=== PATIENT | female | born 1995 | race American Indian/Alaskan Native ===

== ENCOUNTER 2016-07-24 08:26 | Inpatient (IN) | payer MEDICAID ==
[2016-07-24] MEDS ORDERED: SUBLIMAZE IV PRN (09:02)
[2016-07-24] MEDS ORDERED: ePHEDrine SULFATE IV PRN (09:02)
[2016-07-24] MEDS ORDERED: XYLOCAINE 2% INFILTRATI ONE (09:02)
[2016-07-24] MEDS ORDERED: MINERAL OIL PO PRN (09:02)
[2016-07-24] MEDS ORDERED: BRETHINE SUB-Q PRN (09:02)
[2016-07-24 09:48] LABS: Hematocrit 34.8 % (30.3-42.9); Hemoglobin 11.2 gm/dl (10.1-14.3); Mean Corpuscular HGB Conc 32 % (30-34); Mean Corpuscular Volume 78 fl (79-97); Platelet Count 306 K/mm3 (140-440); Red Blood Count 4.47 M/mm3 (3.65-5.03); Red Cell Distribution Width 18.3 % (13.2-15.2); White Blood Count 14.1 K/mm3 (4.5-11.0)
[2016-07-24 09:52] LABS: Mean Corpuscular Hemoglobin 25 pg (28-32)
[2016-07-24] MEDS ORDERED: PITOCin/NS 20 UNIT/1000ML DRIP 1,000 ML IV SCH (10:00)
[2016-07-24] MEDS ORDERED: LACTATED RINGERS 1,000 ML IV SCH (10:00)
[2016-07-24] MEDS ORDERED: PITOCin/NS 30 UNIT/500ML 500 ML IV SCH (10:00)
[2016-07-24] MEDS ORDERED: NORCO 5/325 PO PRN (11:52)
[2016-07-24] MEDS ORDERED: LANSINOH TP PRN ×2 (11:52→12:54)
[2016-07-24] MEDS ORDERED: DULCOLAX PR PRN ×2 (11:52→12:54)
[2016-07-24] MEDS ORDERED: TYLENOL PO PRN ×2 (11:52→12:54)
[2016-07-24] MEDS ORDERED: DERMOPLAST TP PRN ×2 (11:52→12:54)
[2016-07-24] MEDS ORDERED: PHENERGAN PO PRN ×2 (11:52→12:54)
[2016-07-24] MEDS ORDERED: TUCKS PAD TP PRN ×2 (11:52→12:54)
[2016-07-24] MEDS ORDERED: ZOFRAN IV PRN ×2 (11:52→12:54)
[2016-07-24] MEDS ORDERED: BENADRYL PO PRN ×2 (11:52→12:54)
[2016-07-24] MEDS ORDERED: SODIUM CHLORIDE FLUSH SYRINGE 10 ML IV NR ×2 (12:00→12:54)
--- NOTE | 2016-07-24 12:02 | History and Physical Report ---
History of Present Illness Date of examination: 07/24/16 (pt arrived by EMS in active labor; due to deliver @ [facility]) Date of admission: 07/24/16 08:57 History of present illness: Medical HX - denies any concerns Surgical HX - denies any surgeries Family HX negative No STDs NO ETOH,smoking, drug use Pt has her PNR with her GBS Negative @ 39 weeks EDC 07-27-16 Past History - Obstetrical History Expected Date of Delivery: 07/27/16 Actual Gestation: 39 Week(s) 4 Day(s) : 1 Para: 0 Number of Living Children: 0 Medications and Allergies Allergies Allergy/AdvReac Type Severity Reaction Status Date / Time shellfish derived Allergy Angioedema Verified 07/24/16 09:43 Active Meds: Active Medications Acetaminophen (Tylenol) 650 mg PO Q4H PRN PRN Reason: Pain MILD(1-3)/Fever >100.5/BROWER Acetaminophen/Hydrocodone Bitart (Nelson 5/325) 2 each PO Q6H PRN PRN Reason: Pain, Moderate (4-6) Benzocaine/Menthol (Dermoplast) 1 spray TP PRN PRN PRN Reason: Episiotomy Pain Bisacodyl (Dulcolax) 10 mg ME BID PRN PRN Reason: Constipation Diphenhydramine HCl (Benadryl) 25 mg PO Q6H PRN PRN Reason: Itching Diphtheria/Tetanus/Acell Pertussis (Boostrix) 0.5 ml IM .ONCE ONE Stop: 07/25/16 11:53 Fentanyl (Sublimaze) 100 mcg IV Q2H PRN PRN Reason: Labor Pain Lactated Ringer's (Lactated Ringers) 1,000 mls @ 125 mls/hr IV DIRECT KAYLIN Last Admin: 07/24/16 09:30 Dose: 125 mls/hr Oxytocin/Sodium Chloride (Pitocin/Ns 20 Unit/1000ml Drip) 1,000 mls @ 125 mls/ hr IV DIRECT KAYLIN Last Admin: 07/24/16 10:09 Dose: 125 mls/hr Oxytocin/Sodium Chloride (Pitocin/Ns 30 Unit/500ml) 500 mls @ 4 mls/hr IV TITR KAYLIN PRN Reason: Protocol Ibuprofen (Motrin) 600 mg PO Q6H KAYLIN Magnesium Hydroxide (Milk Of Magnesia) 30 ml PO HS PRN PRN Reason: Constipation Measles/Mumps/Rubella Vaccine Live (M-M-R Ii Vaccine) 0.5 ml SUB-Q .ONCE ONE Stop: 07/25/16 11:53 Mineral Oil (Mineral Oil) 30 ml PO QHS PRN PRN Reason: Constipation Multi-Ingredient Ointment (Lansinoh) 1 applic TP PRN PRN PRN Reason: Sore Nipples Ondansetron HCl (Zofran) 4 mg IV Q8H PRN PRN Reason: Nausea And Vomiting Promethazine HCl (Phenergan) 25 mg PO Q6H PRN PRN Reason: Nausea And Vomiting Sodium Chloride (Sodium Chloride Flush Syringe 10 Ml) 10 ml IV PRN NR Witch Jenny/Glycerin (Tucks Pad) 1 each TP PRN PRN PRN Reason: Hemorrhoid/cleansing/soothing - Vital Signs Vital signs: Vital Signs Pulse BP 88 131/85 07/24/16 08:41 07/24/16 08:41 Temp Pulse Resp BP Pulse Ox 97.6 F 88 18 152/81 07/24/16 09:30 07/24/16 11:50 07/24/16 09:30 07/24/16 11:50 - Physical Exam Breasts: Positive: deferred Cardiovascular: Regular rate, Normal S1, Normal S2 Lungs: Positive: Normal air movement Abdomen: Positive: normal appearance, soft, normal bowel sounds. Negative: distention, tenderness Genitourinary (Female): Positive: normal external genitalia Vulva: both: normal Vagina: Positive: normal moisture. Negative: discharge Cervix: Negative: lesion, discharge Uterus: Positive: normal size, normal contour Adnexa: both: normal Anus/Rectum: Positive: normal perianal skin, heme negative. Negative: rectal mass, hemorrhoids Extremities: Deep Tendon Reflex Grade: Normal +2 - Obstetrical FHR: category 1 Uterine Contraction Monitor Mode: External Cervical Dilatation: 6 (BBOW) Cervical Effacement Percentage: 100 station: +1 Uterine Contraction Pattern: Regular Uterine Contraction Intensity: Moderate Results Result Diagrams: 07/24/16 09:39 Abnormal lab results 07/24/16 Range/Units 09:39 WBC 14.1 H (4.5-11.0) K/mm3 MCV 78 L (79-97) fl MCH 25 L (28-32) pg RDW 18.3 H (13.2-15.2) % All other labs normal. Assessment and Plan 20yo @ 39.4 weeks in active labor Pt has had complete OB care with @ [facility] She states she was kaylin for IOL there but they did not have a bed. Orders in EMR GBS negative by record. Anticipate delivery
--- NOTE | 2016-07-24 12:08 | Procedure Note ---
OB Delivery Note - Delivery Date of Delivery: 07/24/16 (called by RN for imminent delivery) Financial Services Counselor: MICHELLE ZUÑIGA Estimated blood loss: 300cc - Vaginal Delivery presentation: vertex Delivery position: OA Intrapartum events: none Delivery induction: none Delivery monitor: external FHT, external uterine Route of delivery: Delivery placenta: spontaneous Delivery cord: 3 umbilical vessels Episiotomy: none Delivery laceration: none Anesthesia: none Delivery comments: live born female over intact perineum OA. Placed on mom's abdomen skin to skin Cord blood obt Placenta and membrane del complete and intact, 3 vessel cord. Pit IVFs. 8/9, EBL 300, Wgt 6-1 Mom and baby remain LDR stable. aware of admission and delivery - A at 1 minute: 8 at 5 minutes: 9 Gender: Female (wgt 6-1)
[2016-07-24] MEDS ORDERED: MILK OF MAGNESIA PO PRN ×2 (12:30→12:54)
[2016-07-24] MEDS ORDERED: MOTRIN PO SCH (12:54)
[2016-07-24] MEDS ORDERED: PHENERGAN PR PRN (12:54)
[2016-07-24] MEDS ORDERED: PERCOCET 5/325 PO PRN (12:54)
[2016-07-24] MEDS ORDERED: TORADOL IV PRN (12:54)
[2016-07-24] MEDS ORDERED: BOOSTRIX IM ONE (12:54)
[2016-07-24 14:38] LABS: Urine Drugs of Abuse Note Disclamer
[2016-07-24 14:52] LABS: Basophils % (Auto) 0.3 % (0.0-1.8); Hematocrit 35.3 % (30.3-42.9); Hemoglobin 11.2 gm/dl (10.1-14.3); Mean Corpuscular HGB Conc 32 % (30-34); Mean Corpuscular Volume 79 fl (79-97); Platelet Count 306 K/mm3 (140-440); Red Blood Count 4.48 M/mm3 (3.65-5.03); Red Cell Distribution Width 18.5 % (13.2-15.2); White Blood Count 16.1 K/mm3 (4.5-11.0)
[2016-07-24 14:55] LABS: Bilirubin,Urine NEG (Negative); Blood,Urine LG (Negative); Ketones,Urine 20 mg/dL (Negative); Leukocyte Esterase,Urine TR (Negative); Mucus,Urine FEW /HPF; Nitrite,Urine NEG (Negative); Urobilinogen,Urine < 2.0 mg/dL (<2.0)
[2016-07-24 14:57] LABS: Mean Corpuscular Hemoglobin 25 pg (28-32)
[2016-07-24 15:05] LABS: Alanine Aminotransferase 11 units/L (7-56); Lactate Dehydrogenase 305 units/L (91-180)
[2016-07-24 15:07] LABS: Uric Acid 5.6 mg/dL (3.5-7.6)
[2016-07-24 15:07] LABS: RBC,Urine > 132.0 /HPF (0.0-6.0)
--- NOTE | 2016-07-24 16:46 | Event Note ---
Date: 07/24/16 (called from RN on m/b BP 142/90) [facility] labs drawn Results in EMR LDH elevated Liver enzymes wnl Instructed to take and document BPs at least q2hr until dx is made.
[2016-07-24] MEDS: MOTRIN PO SCH ×2 (18:21→23:35)
[2016-07-25 03:19] LABS: Hemoglobin 10.4 gm/dl (10.1-14.3)
[2016-07-25 03:32] LABS: Hematocrit 32.6 % (30.3-42.9)
[2016-07-25] MEDS: MOTRIN PO SCH ×3 (05:46→18:30)
--- NOTE | 2016-07-25 08:25 | Progress Note ---
Assessment and Plan Patient w/o complaints, reports baby is in nursery for jaundice. Lochia scant, VSSAF, no s/s pre-e, labs NL. H&H 10.4/32.6. Plan for d/c home tomorrow d/t needing additional monitoring. - Patient Problems (1) Spontaneous vaginal delivery Current Visit: Yes Status: Acute Subjective - Subjective Date of service: 07/25/16 Principal diagnosis: day #1 s/p Patient reports: appetite normal, voiding normally, pain well controlled, ambulating normally, no dizzy ambulation, no nauseated : bottle feeding (in nursery for [place]) Objective - Vital Signs Latest vital signs: Vital Signs Temp Pulse Pulse Pulse Resp BP BP 07/25/16 00:10 98.1 F 82 20 134/72 07/24/16 20:00 98.4 F 88 20 127/74 07/24/16 18:10 120/77 07/24/16 15:50 98.8 F 102 H 20 123/89 07/24/16 12:40 97.6 F 86 16 142/91 07/24/16 12:04 102 H 147/80 07/24/16 12:00 97.1 F L 16 07/24/16 11:50 88 152/81 07/24/16 11:35 48 L 133/68 07/24/16 11:19 88 138/87 07/24/16 10:15 97.6 F 18 07/24/16 09:30 97.6 F 18 07/24/16 08:41 88 131/85 Intake and Output 07/24/16 07/25/16 07/25/16 22:59 06:59 14:59 Intake Total 240 240 Output Total 500 Balance -260 240 Intake: Oral 240 240 Output: Urine 500 Void 500 Other: Total, Intake Amount 240 240 Total, Output Amount 500 # Voids Void 1 - Exam Breasts: Present: normal Cardiovascular: Present: Regular rate Lungs: Present: Clear to auscultation, Normal air movement Abdomen: Present: normal appearance, soft, normal bowel sounds Vulva: both: normal Uterus: Present: normal, firm, fundal height at umbilicus Extremities: Present: normal Deep Tendon Reflex Grade: Normal +2 - Labs Labs: Abnormal lab results 07/24/16 07/24/16 07/24/16 Range/Units 09:39 13:29 14:00 WBC 14.1 H 16.1 H (4.5-11.0) K/mm3 MCV 78 L (79-97) fl MCH 25 L 25 L (28-32) pg RDW 18.3 H 18.5 H (13.2-15.2) % Lymph % (Auto) 6.1 L (13.4-35.0) % Lymph # 1.0 L (1.2-5.4) K/mm3 Dade # 1.0 H (0.0-0.8) K/mm3 Seg Neutrophils % 87.2 H (40.0-70.0) % Seg Neutrophils # 14.1 H (1.8-7.7) K/mm3 Creatinine (0.7-1.2) mg/dL Lactate Dehydrogenase (91-180) units/L Urine WBC (Auto) 10.0 H (0.0-6.0) /HPF 07/24/16 07/24/16 Range/Units 14:00 14:00 WBC (4.5-11.0) K/mm3 MCV (79-97) fl MCH (28-32) pg RDW (13.2-15.2) % Lymph % (Auto) (13.4-35.0) % Lymph # (1.2-5.4) K/mm3 Dade # (0.0-0.8) K/mm3 Seg Neutrophils % (40.0-70.0) % Seg Neutrophils # (1.8-7.7) K/mm3 Creatinine 0.4 L (0.7-1.2) mg/dL Lactate Dehydrogenase 305 H (91-180) units/L Urine WBC (Auto) (0.0-6.0) /HPF
--- NOTE | 2016-07-25 08:29 | Discharge Summary ---
Providers - Providers Date of Admission: 07/24/16 08:57 Date of discharge: 07/26/16 Attending physician: VALENTÍN ERWIN 07/24/16 12:54 Consult to [employer] [CONS] Routine Reason For Exam: assistance with , SNS Primary care physician: VALENTÍN ERWIN Hospitalization Reason for admission: active labor Delivery: Episiotomy: none Laceration: none Other procedures: none complications: none Discharge diagnosis: IUP at term delivered [place] baby: female Hospital course: uncomplicated vaginal delivery Condition at discharge: Good Disposition: DISCHARGED TO HOME OR SELFCARE - Discharge Diagnoses (1) Spontaneous vaginal delivery Status: Acute Plan - Provider Discharge Summary Activity: routine, no sex for 6 weeks, no heavy lifting 4 weeks, no strenuous exercise Diet: routine Instructions: routine Additional instructions: [] Smoking cessation referral if applicable(refer to patient education folder for contact #) [] Refer to [facility] Booklet Call your doctor immediately for: * Fever > 100.5 * Heavy vaginal bleeding ( >1 pad per hour) * Severe persistent headache * Shortness of breath * Reddened, hot, painful area to leg or breast * Drainage or odor from incision. * Keep incision clean and dry at all times and follow doctor's instructions regarding bathing/showering - Follow up plan Follow up: VALENTÍN ERWIN MD [Primary Care Provider] - 08/25/16 (Congratulations! Please call [phone] to schedule your visit in 4 weeks with our office, or you can follow up with your own provider for care. Call for any questions or concerns. )
[2016-07-25] MEDS ORDERED: BOOSTRIX IM ONE (11:52)
[2016-07-25] MEDS ORDERED: M-M-R II VACCINE SUB-Q ONE (11:52)
[2016-07-25] MEDS ORDERED: FLUARIX QUAD 2016-2017(36 MOS+) IM ONE (12:00)
[2016-07-26] MEDS: MOTRIN PO SCH ×2 (00:23→06:23)
[2016-07-26 15:19] VITALS: BP 144/88
== END 2016-07-26 14:00 | disposition home or self-care (01) | DRG 775 ==
LOC: TRG 08:26 → LD 08:57 → OB 12:42
PROVIDERS: ADMIT Obstetrics & Gynecology; ATTEND Obstetrics & Gynecology
PROC: 10E0XZZ Delivery of Products of Conception, External Approach (ICD-10-PCS; principal; 2016-07-24)
DX: O80 Encounter for full-term uncomplicated delivery (principal); Z3A.39 39 weeks gestation of pregnancy; Z37.0 Single live birth; Z91.013 Allergy to seafood
CPT/HCPCS: 36415; 80307; 81001; 82565; 82962; 83615; 84450; 84460; 84550; 85014; 85018; 85025; 85027; 86592; 86850; 86900; 86901; 88307; 90686; 99211; G0463; J2590; J3010; J7120